=== PATIENT | male | born 1950 | race American Indian/Alaskan Native ===

== ENCOUNTER 2017-10-18 15:19 | Emergency (ER) | payer MEDICARE ==
[2017-10-18 15:32] VITALS: BP 149/82
--- NOTE | 2017-10-18 21:08 | Emergency Department Report ---
ED Rash HPI - HPI Chief Complaint: Skin Rash Stated Complaint: POSION BRANNON Time Seen by Provider: 10/18/17 20:58 Rash Symptoms: Yes Itching, No Facial Swelling, No Tongue/Oral Swelling, No Breathing Difficulties, No Choking Sensation, No Wheezing/Dyspnea, No Peeling, No Blistering, No Fever, No Lightheaded, No Malaise, No Myalgias Severity: mild ED Review of Systems ROS: Stated complaint: POSION BRANNON Other details as noted in HPI Constitutional: denies: chills, fever Eyes: denies: eye pain, eye discharge, vision change ENT: denies: ear pain, throat pain Respiratory: denies: cough, shortness of breath, wheezing Cardiovascular: denies: chest pain, palpitations Endocrine: no symptoms reported Gastrointestinal: denies: abdominal pain, nausea, diarrhea Genitourinary: denies: urgency, dysuria Musculoskeletal: as per HPI Skin: rash Neurological: denies: headache, weakness, paresthesias Psychiatric: denies: anxiety, depression Hematological/Lymphatic: denies: easy bleeding, easy bruising ED Past Medical Hx - Past Medical History Hx Hypertension: Yes - Surgical History Additional Surgical History: Right hip replacement - Social History Smoking Status: Never Smoker Substance Use Type: Alcohol - Medications Home Medications: Home Medications Medication Instructions Recorded Confirmed Last Taken Type guaiFENesin [Mucinex] 1,200 mg PO Q12HR #30 tab 04/11/16 Unknown Rx Hydrochlorothiazide [Hctz] 12.5 mg PO QDAY #30 capsule 05/04/16 Unknown Rx amLODIPine [Norvasc] 5 mg PO DAILY #30 tab 05/04/16 Unknown Rx Calamine/Zinc Oxide [Calamine 1 applicatio TP TID 14 Days #180 ml 10/18/17 Unknown Rx Lotion] diphenhydrAMINE [Benadryl CAP] 25 mg PO Q6HR PRN #30 capsule 10/18/17 Unknown Rx predniSONE [Deltasone] 20 mg PO QDAY #5 tab 10/18/17 Unknown Rx Rash Exam - Exam General: Vital signs noted. No distress. Alert and acting appropriately. HEENT: No Periorbital Edema, No Conjuctival Injection, No Chemosis, No Perioral Edema, No Tongue Edema, No Uvular Edema, No Compromised Airway, No Drooling Lungs: Yes Good Air Exchange (Normal Breath Sounds), No Wheezes, No Ronchi, No Stridor, No Cough, No Labored Respirations, No Retractions, No Use of Accessory Muscles, No Other Abnormal Lung Sounds Heart: Yes Regular, No Murmur Skin: Yes Urticarial Rash, Yes Erythema, Yes Other (small papular clear cluster rash ), No Maculopapular Rash, No Morbilliform rash, No Bulla(e), No Excoriations, No Weeping, No Tenderness, No Edema, No Encrustations ED Course Vital Signs 10/18/17 15:29 Temperature 98.4 F Pulse Rate 82 Respiratory 16 Rate Blood Pressure 149/82 O2 Sat by Pulse 98 Oximetry ED Medical Decision Making - Medical Decision Making poision brannon no sob no wheezing no cp mild itching and erythema. Critical care attestation.: If time is entered above; I have spent that time in minutes in the direct care of this critically ill patient, excluding procedure time. ED Disposition Clinical Impression: Poison brannon dermatitis Disposition: TO HOME OR SELFCARE Is pt being admited?: No Does the pt Need Aspirin: No Condition: Good Instructions: Poison Brannon (ED) Prescriptions: Calamine/Zinc Oxide [Calamine Lotion] 1 applicatio TP TID 14 Days #180 ml diphenhydrAMINE [Benadryl CAP] 25 mg PO Q6HR PRN #30 capsule PRN Reason: itching predniSONE [Deltasone] 20 mg PO QDAY #5 tab Referrals: OPAL JOHNSON [Other] - 3-5 Days Forms: Work/School Release Form(ED) Time of Disposition: 21:08
== END 2017-10-18 21:25 | disposition home or self-care (01) ==
LOC: ED 15:19
DX: L23.7 Allergic contact dermatitis due to plants, except food (principal); I10 Essential (primary) hypertension
CPT/HCPCS: 99281

== ENCOUNTER 2018-11-01 22:49 | Emergency (ER) | payer MEDICARE ==
[2018-11-01 23:19] VITALS: BP 158/83
[2018-11-02] MEDS ORDERED: DELTASONE PO ONE (00:17)
[2018-11-02] MEDS ORDERED: PEPCID PO ONE (00:18)
[2018-11-02] MEDS ORDERED: BENADRYL PO ONE (00:18)
--- NOTE | 2018-11-02 00:23 | Emergency Department Report ---
ED Rash HPI - HPI Chief Complaint: Skin Rash Stated Complaint: POISON BRANNON Time Seen by Provider: 11/02/18 00:17 Location: Chest, Back, Upper Extremities Suspected Cause: Plant Rash Symptoms: Yes Itching, No Facial Swelling, No Tongue/Oral Swelling, No Breathing Difficulties, No Choking Sensation, No Wheezing/Dyspnea, No Peeling, No Blistering, No Fever, No Lightheaded, No Malaise, No Myalgias Severity: moderate Other History: pt presenst for rash s/p exposure to poison brannon today hx of same out of calamine lotion there is no sob no wheezing no cp no weep no fever no boo ED Review of Systems ROS: Stated complaint: POISON BRANNON Other details as noted in HPI Constitutional: denies: chills, fever Eyes: denies: eye pain, eye discharge, vision change ENT: denies: ear pain, throat pain Respiratory: denies: cough, shortness of breath, wheezing Cardiovascular: denies: chest pain, palpitations Endocrine: no symptoms reported Gastrointestinal: denies: abdominal pain, nausea, diarrhea Genitourinary: denies: urgency, dysuria Musculoskeletal: denies: back pain, joint swelling, arthralgia Skin: rash, pruritus Neurological: denies: headache, weakness, paresthesias Psychiatric: denies: anxiety, depression Hematological/Lymphatic: denies: easy bleeding, easy bruising ED Past Medical Hx - Past Medical History Previous Medical History?: Yes Hx Hypertension: Yes - Surgical History Past Surgical History?: Yes Additional Surgical History: Right hip replacement - Social History Smoking Status: Never Smoker - Medications Home Medications: Home Medications Medication Instructions Recorded Confirmed Last Taken Type guaiFENesin [Mucinex] 1,200 mg PO Q12HR #30 tab 04/11/16 Unknown Rx amLODIPine [Norvasc] 5 mg PO DAILY #30 tab 05/04/16 Unknown Rx hydroCHLOROthiazide [Hctz] 12.5 mg PO QDAY #30 capsule 05/04/16 Unknown Rx Calamine/Zinc Oxide [Calamine 1 applicatio TP TID 14 Days #180 ml 10/18/17 Unknown Rx Lotion] diphenhydrAMINE [Benadryl CAP] 25 mg PO Q6HR PRN #30 capsule 10/18/17 Unknown Rx predniSONE [Deltasone] 20 mg PO QDAY #5 tab 10/18/17 Unknown Rx Calamine/Zinc Oxide [Calamine 1 applicatio TP TID 14 Days #1 11/02/18 Unknown Rx Lotion] bottle Famotidine [Pepcid] 20 mg PO BID 7 Days #14 11/02/18 Unknown Rx diphenhydrAMINE [Benadryl CAP] 25 mg PO Q6HR PRN 7 Days #28 11/02/18 Unknown Rx capsule predniSONE [Deltasone] 40 mg PO QDAY 5 Days #10 tab 11/02/18 Unknown Rx Rash Exam - Exam General: Vital signs noted. No distress. Alert and acting appropriately. HEENT: No Periorbital Edema, No Conjuctival Injection, No Chemosis, No Perioral Edema, No Tongue Edema, No Uvular Edema, No Compromised Airway, No Drooling Lungs: Yes Good Air Exchange (Normal Breath Sounds), No Wheezes, No Ronchi, No Stridor, No Cough, No Labored Respirations, No Retractions, No Use of Accessory Muscles, No Other Abnormal Lung Sounds Heart: Yes Regular, No Murmur Skin: Yes Urticarial Rash, Yes Excoriations, Yes Erythema, No Maculopapular Rash, No Morbilliform rash, No Bulla(e), No Weeping, No Tenderness, No Edema, No Encrustations Other: Positive: Abdomen Normal, Neurologic Normal, Musculoskeletal Normal ED Course Vital Signs 11/01/18 23:15 Temperature 98.0 F Pulse Rate 59 L Respiratory 20 Rate Blood Pressure 158/83 O2 Sat by Pulse 97 Oximetry ED Medical Decision Making - Medical Decision Making this allergic dermatitis secondary to poison brannon contact plan: calamine lotion, prednisone, benadryl, pepcid, follow up with pcp in 2-3 days return to ed if symptoms worsen pt verbalized agreement and understanding of same. Critical care attestation.: If time is entered above; I have spent that time in minutes in the direct care of this critically ill patient, excluding procedure time. ED Disposition Clinical Impression: Poison brannon dermatitis Disposition: DC-01 TO HOME OR SELFCARE Is pt being admited?: No Does the pt Need Aspirin: No Condition: Stable Instructions: Poison Brannno (ED) Prescriptions: diphenhydrAMINE [Benadryl CAP] 25 mg PO Q6HR PRN 7 Days #28 capsule PRN Reason: itching allergies Calamine/Zinc Oxide [Calamine Lotion] 1 applicatio TP TID 14 Days #1 bottle predniSONE [Deltasone] 40 mg PO QDAY 5 Days #10 tab Famotidine [Pepcid] 20 mg PO BID 7 Days #14 Referrals: [facility] [Outside] - 3-5 Days Forms: Work/School Release Form(ED) Time of Disposition: 00:27
== END 2018-11-02 00:54 | disposition home or self-care (01) ==
LOC: ED 22:49
DX: L23.7 Allergic contact dermatitis due to plants, except food (principal); I10 Essential (primary) hypertension; Z79.899 Other long term (current) drug therapy; Z91.013 Allergy to seafood
CPT/HCPCS: 99282; J7512

== ENCOUNTER 2018-11-30 12:51 | Emergency (ER) | payer MEDICARE ==
--- NOTE | 2018-11-30 13:03 | Event Note ---
ED Screening Note Date of service: 11/30/18 Time: 13:01 ED Screening Note: This is a 68 y.o. M. that presents to the ER with pruitus. Patient states he came into contact with samuel kuhny 2 days. He denies a rash. Reports constant itching BUE and anterior torso. This initial assessment/diagnostic orders/clinical plan/treatment(s) is/are subject to change based on patients health status, clinical progression and re- assessment by fellow clinical providers in the ED. Further treatment and workup at subsequent clinical providers discretion. Patient/guardian urged not to elope from the ED as their condition may be serious if not clinically assessed and managed. Initial orders include:
--- NOTE | 2018-11-30 14:27 | Emergency Department Report ---
ED Rash HPI - HPI Chief Complaint: Skin Rash Stated Complaint: CAME IN CONTACT W/POISON BRANNON Time Seen by Provider: 11/30/18 13:00 Duration: 2 Days Location: Abdomen, Upper Extremities Suspected Cause: Plant Rash Symptoms: Yes Itching, No Facial Swelling, No Tongue/Oral Swelling, No Breathing Difficulties, No Choking Sensation, No Wheezing/Dyspnea, No Peeling, No Blistering, No Fever, No Lightheaded, No Malaise, No Myalgias Severity: mild Other History: This is a 68-year-old male nontoxic, well nourished in appearanc e, no acute signs of distress presents to the ED with c/o of itching to bilateral arms and torso 2 days. Patient stated he was in contact with poison brannon and is concerned. Patient denies any rash or blisters. Patient denies any facial swelling, difficulty breathing, fever, chills, nausea, vomiting, chest pain or sense of breath. ED Review of Systems ROS: Stated complaint: CAME IN CONTACT W/POISON BRANNON Other details as noted in HPI Constitutional: denies: chills, fever Eyes: denies: eye pain, eye discharge, vision change ENT: denies: ear pain, throat pain Respiratory: denies: cough, shortness of breath, wheezing Cardiovascular: denies: chest pain, palpitations Endocrine: no symptoms reported Gastrointestinal: denies: abdominal pain, nausea, diarrhea Genitourinary: denies: urgency, dysuria Musculoskeletal: denies: back pain, joint swelling, arthralgia Skin: denies: rash, lesions Neurological: denies: headache, weakness, paresthesias Psychiatric: denies: anxiety, depression Hematological/Lymphatic: denies: easy bleeding, easy bruising ED Past Medical Hx - Past Medical History Previous Medical History?: Yes Hx Hypertension: Yes Hx Diabetes: Yes - Surgical History Past Surgical History?: Yes Additional Surgical History: Right hip replacement - Social History Smoking Status: Never Smoker Substance Use Type: Prescribed - Medications Home Medications: Home Medications Medication Instructions Recorded Confirmed Last Taken Type guaiFENesin [Mucinex] 1,200 mg PO Q12HR #30 tab 04/11/16 Unknown Rx amLODIPine [Norvasc] 5 mg PO DAILY #30 tab 05/04/16 Unknown Rx hydroCHLOROthiazide [Hctz] 12.5 mg PO QDAY #30 capsule 05/04/16 Unknown Rx Calamine/Zinc Oxide [Calamine 1 applicatio TP TID 14 Days #180 ml 10/18/17 Unk nown Rx Lotion] diphenhydrAMINE [Benadryl CAP] 25 mg PO Q6HR PRN #30 capsule 10/18/17 Unknown Rx predniSONE [Deltasone] 20 mg PO QDAY #5 tab 10/18/17 Unknown Rx Calamine/Zinc Oxide [Calamine 1 applicatio TP TID 14 Days #1 11/02/18 Unknown Rx Lotion] bottle Famotidine [Pepcid] 20 mg PO BID 7 Days #14 11/02/18 Unknown Rx diphenhydrAMINE [Benadryl CAP] 25 mg PO Q6HR PRN 7 Days #28 11/02/18 Unknown Rx capsule predniSONE [Deltasone] 40 mg PO QDAY 5 Days #10 tab 11/02/18 Unknown Rx diphenhydrAMINE [Benadryl CAP] 25 mg PO Q6HR PRN #12 capsule 11/30/18 Unknown Rx Rash Exam - Exam General: Vital signs noted. No distress. Alert and acting appropriately. HEENT: No Periorbital Edema, No Conjuctival Injection, No Chemosis, No Perioral Edema, No Tongue Edema, No Uvular Edema, No Compromised Airway, No Drooling Lungs: Yes Good Air Exchange (Normal Breath Sounds), No Wheezes, No Ronchi, No Stridor, No Cough, No Labored Respirations, No Retractions, No Use of Accessory Muscles, No Other Abnormal Lung Sounds Heart: Yes Regular, No Murmur Skin: No Urticarial Rash, No Maculopapular Rash, No Morbilliform rash, No Bulla(e), No Excoriations, No Weeping, No Tenderness, No Erythema, No Edema, No Encrustations, No Other Other: Positive: Abdomen Normal, Neurologic Normal, Musculoskeletal Normal ED Course Vital Signs 11/30/18 12:56 Temperature 98.7 F Pulse Rate 82 Respiratory 18 Rate Blood Pressure 153/73 O2 Sat by Pulse 97 Oximetry - Reevaluation(s) Reevaluation #1: 11/30/18 14:25 Patient is speaking in full sentences with no signs of distress noted. ED Medical Decision Making - Medical Decision Making 68-year-old male that presents with pruritus. Patient is stable and was examined by me. Upon examination there is no rash formation or blisters. No angioedema. I will discharge patient of Benadryl. Patient was instructed to Follow-up with a primary care doctor in 3-5 days or if symptoms worsen and continue return to emergency room as soon as possible. At time of discharge, the patient does not seem toxic or ill in appearance. No acute signs of distress noted. Patient agrees to discharge treatment plan of care. No further questions noted by the patient. Critical care attestation.: If time is entered above; I have spent that time in minutes in the direct care of this critically ill patient, excluding procedure time. ED Disposition Clinical Impression: Pruritus Disposition: DC-01 TO HOME OR SELFCARE Is pt being admited?: No Does the pt Need Aspirin: No Condition: Stable Instructions: Diphenhydramine (By mouth) Additional Instructions: Follow-up with a primary care doctor in 3-5 days or if symptoms worsen and continue return to emergency room as soon as possible. Prescriptions: diphenhydrAMINE [Benadryl CAP] 25 mg PO Q6HR PRN #12 capsule PRN Reason: Itching Referrals: GORDON PLASCENCIA MD [Primary Care Provider] - 3-5 Days PRIMARY CAREMD [Referring] - 3-5 Days MIKE PALMER MD [Staff Physician] - 3-5 Days [facility] [Outside] - 3-5 Days [facility] [Outside] - 3-5 Days Forms: Work/School Release Form(ED)
[2018-11-30 14:56] VITALS: BP 148/72
== END 2018-11-30 14:55 | disposition home or self-care (01) ==
LOC: ED 12:51
DX: L29.9 Pruritus, unspecified (principal); I10 Essential (primary) hypertension; E11.9 Type 2 diabetes mellitus without complications; Z96.641 Presence of right artificial hip joint; Z79.899 Other long term (current) drug therapy; Z91.013 Allergy to seafood
CPT/HCPCS: 99282

== ENCOUNTER 2021-01-05 13:29 | Emergency (ER) | payer MEDICARE ==
[2021-01-05 14:24] VITALS: BP 142/46
--- NOTE | 2021-01-05 15:14 | XRay Report ---
CHEST 2 VIEWS INDICATION: bradycardia. COMPARISON: None FINDINGS: Support devices: None. Heart: Within normal limits. Lungs/pleura: No acute air space or interstitial disease. No pneumothorax. Additional findings: None. IMPRESSION: No acute findings. Signer Name: Renny Goins Jr, MD Signed: 01/05/2021 3:10 PM Workstation Name: [id number]
[2021-01-05 15:58] LABS: Albumin 3.3 g/dL (3.9-5); Calcium 8.5 mg/dL (8.4-10.2)
[2021-01-05 16:03] LABS: Basophils % (Auto) 0.3 % (0.0-1.8); Eosinophils % (Auto) 0.8 % (0.0-4.3); Hematocrit 34.3 % (35.5-45.6); Hemoglobin 11.1 gm/dl (11.8-15.2); Lymphocytes # (Auto) 0.8 K/mm3 (1.2-5.4); Lymphocytes % (Auto) 13.6 % (13.4-35.0); Mean Corpuscular HGB Conc 32 % (32-34); Mean Corpuscular Volume 91 fl (84-94); Monocytes # (Auto) 0.8 K/mm3 (0.0-0.8); Monocytes % (Auto) 14.5 % (0.0-7.3); Platelet Count 142 K/mm3 (140-440); Red Blood Count 3.75 M/mm3 (3.65-5.03); Red Cell Distribution Width 15.4 % (13.2-15.2)
--- NOTE | 2021-01-05 19:03 | Event Note ---
ED Screening Note Date of service: 01/05/21 Time: 19:02 ED Screening Note: 70-year-old male patient presents to the emergency department with complaints of fatigue, dizziness, weakness, and lightheadedness starting 1 week ago. No preceding fall, trauma, or injury. No new medications. No known history of cardiac problems. Bradycardic in triage. Bigeminy noted on EKG. No old EKG available for comparison. General: Awake, appropriately interactive, no acute distress. Neck: Supple. Full range of motion intact. Cardiovascular: Irregular rhythm. Normal peripheral perfusion. Pulmonary: No respiratory distress. Patient is speaking normally without use of accessory muscles. Skin: No apparent rashes or lesions. Neurological: No facial asymmetry. Speech is clear. Follows commands. Patient is alert and oriented. Musculoskeletal: Moves all four extremities spontaneously with normal range of motion. Psych: Cooperative. Appropriate mood and affect. I have greeted and performed a focused rapid initial assessment of this patient. A comprehensive ED assessment and evaluation of the patient, analysis of all test results, and completion of the medical decision-making process will be conducted by additional ED providers. This initial assessment/diagnostic orders/clinical plan/treatment(s) is/are subject to change based on patients health status, clinical progression and re-assessment. Further treatment and workup at subsequent clinical provider's discretion. Patient/guardian urged not to elope from the ED as their condition may be serious if not clinically assessed and managed.
--- NOTE | 2021-01-06 09:21 | Electrocardiograph Report ---
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
== END 2021-01-06 01:24 | disposition left against medical advice (07) ==
LOC: ED 13:29
DX: J18.9 Pneumonia, unspecified organism (principal); Z53.21 Procedure and treatment not carried out due to patient leaving prior to being seen by health care provider
CPT/HCPCS: 36415; 71046; 80053; 83735; 84436; 84443; 84484; 85025; 93005